=== PATIENT | female | born 1935 | race Caucasian/White ===

== ENCOUNTER 2016-09-22 11:31 | Outpatient (CLI) | payer MEDICARE ==
--- NOTE | 2016-09-22 18:06 | RAD ---
LUMBAR SPINE THREE VIEWS: 09/22/16 Mild anterior compressions of T12 and L1 vertebral bodies are seen. T12 is reduced in height by abou t 15 to 20%. L1 is reduced in height by about 40-50%. There is no significant displacement of either vertebrae. The bones are osteoporotic. Mild disc space narrowing is present at L3-L4 and L4-L5. Ost eophytes are seen at multiple levels. The SI joints are symmetrical. There is a very minor dilation of the distal abdominal aorta with an AP diameter of 2.8 cm (the aorta is calcified). IMPRESSION: 1. Compression fractures of T12 and L1. 2. Osteoporosis and diffuse degenerative change including disc space narrowing at L3-L4 and L4- L5. 3. Slight dilation of the distal abdominal aorta, AP diameter 2.8 cm. POS: [facility]
== END 2016-09-22 11:32 | disposition home or self-care (01) ==
LOC: BURRAD 11:31
PROVIDERS: ATTEND Physician Assistant
DX: M54.5 Low back pain (principal); M80.08XA Age-related osteoporosis with current pathological fracture, vertebra(e), initial encounter for fracture; M47.816 Spondylosis without myelopathy or radiculopathy, lumbar region; I77.811 Abdominal aortic ectasia
CPT/HCPCS: 72100